=== PATIENT | male | born 1985 | race Caucasian/White ===

== ENCOUNTER 2024-11-05 13:21 | Emergency (ER) | payer OTHER, SELFPAY ==
[2024-11-05] VITALS (8 sets, daily range): BP systolic 117–126; BP diastolic 60–77; PULSE 64–88; BMI 25.0
[2024-11-05 13:42] LABS: % Basophils 0.8 % (0-2); % Immature Granulocytes 0.2 % (0-0.5); % Lymphocytes 30.5 % (20.5-51.1); % Monocytes 8.2 % (1.7-9.3); % Neutrophils 56.3 % (42.2-75.2); Absolute Eosinophils 0.2 10^3/uL (0-0.7); Absolute Lymphocytes 1.5 10^3/uL (1.2-3.4); Absolute Monocytes 0.4 10^3/uL (0.1-0.6); Absolute Neutrophils 2.8 10^3/uL (1.4-6.5); Hematocrit 39.1 % (39.0-52.0); Hemoglobin 13.7 g/dL (13.0-18.0); Mean Corpuscular Hgb 31.2 pg (27.0-31.0); Mean Corpuscular Volume 89.1 fL (80.0-94.0); Mean Platelet Volume 10.3 fL (7.4-10.4); Nucleated Red Blood Cells % 0 % (-); Platelet Count 174 10^3/uL (130-400); Red Blood Cell Count 4.39 10^6/uL (4.70-6.10)
[2024-11-05 14:03] LABS: ALT (SGPT) 16 U/L (0-50); AST (SGOT) 20 U/L (17-59); Alkaline Phosphatase 43 U/L (38-126); Blood Urea Nitrogen 13 mg/dl (9-20); Calcium 9.3 mg/dl (8.4-10.2); Carbon Dioxide 25 mmol/L (22-30); Chloride 111 mmol/L (98-107); Glucose 98 mg/dl (70-99); Sodium 143 mmol/L (135-145); Total Bilirubin 0.9 mg/dl (0.2-1.3); Total Protein 7.3 g/dl (6.3-8.2); eGFR > 60.00
--- NOTE | 2024-11-05 15:58 | ED.GENMED ---
History of Present Illness
General
Chief Complaint: Dizziness
Source: patient
Exam Limitations: none
Time Seen by Provider: 11/05/24 15:57
History of Present Illness
History of Present Illness:
39yoM with no significant past medical history presenting via EMS for evaluation of dizziness. Symptoms have been present for the past 3 days. He describes the dizziness as feeling lightheaded but also feeling like his brain is moving faster than
his body, 'like I have tunnel vision but my vision is all there.' Symptoms are constant but worsen with head movement and standing. He states it feels like he is 70% about to pass out but not quite there. He has some head pressure but denies any
headache. No loss of vision, ear pain, hearing loss, sinus pressure, chest pain. Of note, patient was sick with a stomach bug about 2 weeks ago. He was seen at urgent care yesterday and was advised to start using Flonase and follow up with his
PCP. He was seen by his PCP this afternoon and there was concern about peaked T waves so EMS was called. His only current medication is finasteride which he takes for hair loss.
Phy Exam
General Physical Exam
General Presentation: well appearing and no apparent distress
General Skin: warm and dry
General Habitus: normal
General Mental: alert
General Hydration: appears well hydrated
ENT Exam
ENT Exam: EOMI and normocephalic
Eye Exam
Eye Exam: PERRL, EOMI and conjunctiva normal
Cardiovascular Exam
Cardiovascular Exam: regular rate/rhythm and no murmur
Pulmonary Exam
Pulmonary Exam: lungs clear, no respiratory distress, no rales, no crackles, no rhonchi and no wheezing
Neurological Exam
Neurological Exam: alert and other (PERRL. EOMs intact without nystagmus. Normal finger to nose and heel to knight bilaterally. No gait ataxia noted.)
Melani Coma Scale
Eye Opening: Spontaneous
Verbal Response: Oriented
Motor Response: Obeys Commands
GCS Total Score: 15
Skin Exam
Skin Exam: normal color and warm/dry
Psychiatric Exam
Psychiatric Exam: normal mood/affect
Course
Orders/Labs/Results
Orders:
Orders
11/05/24 13:23
EKG [Electrocardiogram (*1)] Urgent
Reason for Study: Vertigo / Dizzy
EKG- Treatment ONCE
11/05/24 13:31
Complete Blood Count/With Diff Urgent
Comprehensive Metabolic Panel Urgent
11/05/24 16:13
Orthostatic VS- Treatment ONCE
0.9% Sodium Chloride 1000 ml [Nss] 1,000 ml IV BOLUS
Pt Eval And Treat Urgent
Treatment: vestibular eval
Activity Level: Out of Bed- Ad Shaista
11/05/24 16:43
CT Head W/o Iv Contrast Urgent
Comment:
Reason For Exam: dizziness
Abnormal Lab Results
11/05/24
13:31
RBC 4.39 L 10^6/uL
(4.70-6.10)
MCH 31.2 H pg
(27.0-31.0)
Chloride 111 H mmol/L
(98-107)
11/05/24 13:31
11/05/24 13:31
Vital Signs
Initial and Last Documented VS:
Initial Vital Signs
Temp Pulse Resp BP Pulse Ox
98.0 F 58 18 119/77 100
11/05/24 13:23 11/05/24 13:23 11/05/24 13:23 11/05/24 13:23 11/05/24 13:23
Last Documented Vital Signs
Temp Pulse Resp BP Pulse Ox
98.0 F 55 16 126/73 99
11/05/24 13:23 11/05/24 17:15 11/05/24 17:15 11/05/24 17:10 11/05/24 17:00
MDM/Problems Addressed
Differential Diagnosis Includes:
39yoM here with dizziness x 3 days. Described as lightheadedness but also described as feeling like his brain is moving faster than his body. Denies vertiginous symptoms. Sent here by PCP for concern for peaked T waves. VSS. He is well appearing in
no distress. Exam reassuring. No ataxia or nystagmus noted. Differential diagnosis includes but is not limited to: vertigo, orthostasis, dehydration, less likely CVA
Initial ED plan: Labs and EKG obtained in triage. EKG shows sinus bradycardia without ischemic changes or ectopy. Labs unremarkable including normal potassium, glucose, renal function. Will check orthostatic vitals, order vestibular evaluation, and
check CT head. IV fluid bolus.
*EKG
Interpreted by ED Provider?: Yes
EKG Intrepretation Date: 11/05/24
Heart Rate: 53
Rate: bradycardiac
Rhythm: sinus
[place]: normal axis
Interval: normal interval
QRS Pattern: normal QRS
Ischemia: no ischemia
*Critical Care Note
Total Time (30-74mins, 75-104mins- exclusive of procedures): Not Applicable
Update Note
Update Note:
CT head negative for acute findings. Patient evaluated by physical therapy and all vestibular testing was negative. Blood pressure did not drop with standing. Unclear etiology of symptoms. Advised follow-up with PCP. Patient also questioning
whether he should see a broadcast chief engineer and contact information was provided. Patient discharged in stable condition and ambulated with a steady gait out of emergency department.
ED Attending Note
-
Portions of this chart may have been created with voice recognition software.� Occasional wrong word or��sound alike� substitutions may have occurred due to the inherent limitations of voice recognition software.
Discharge Plan
Departure
Patient Disposition: Home (Routine Discharge)
Date of Disposition: 11/05/24
Time of Disposition: 17:23
Patient with high blood pressure during this ER visit?: No
Discharge Problem:
Nonspecific dizziness
Instructions: Dizziness
Referrals:
[facility] [Provider Group]
NONE,* [Family Provider, Internal Medicine]
Dat Chowdhury MD [Active, Cardiology]
Activity Restrictions/Additional Instructions:
Please follow-up with your family doctor. Return to the ER with any new or worsening symptoms.
Interventions
Interventions:
*Risk Screen - Suicide Last Done: 11/05/24 13:23
*General Assessment Last Done: 11/05/24 13:23
*Neglect/Abuse Screening Last Done: 11/05/24 16:21
*ED- Fall Risk Assessment Last Done: 11/05/24 13:23
*ED COVID-19 Vaccine History Last Done: 11/05/24 13:23
*Nursing Disposition Last Done: 11/05/24 17:34
ED- Neurological Assessment Last Done: 11/05/24 16:21
ED- Cardiac Assessment Last Done: 11/05/24 16:21
ED Swallowing Screen Last Done: 11/05/24 16:21
Discharge Date and Time
Discharge Date/Time: 11/05/24 17:42
Print Language: ALBANIAN
[2024-11-05] MEDS: NSS 1000 IV (16:17)
== END 2024-11-05 17:42 | disposition home or self-care (01) ==
LOC: EMR 13:21
PROVIDERS: Emergency Medicine; EMERGENCY PHYSICIAN Emergency Medicine
DX: R42 Dizziness and giddiness (principal); R00.1 Bradycardia, unspecified
CPT/HCPCS: 96360; 99284; 70450; 80053; 85025; 93005

== ENCOUNTER → 2024-11-21 08:53 | Outpatient (REF) | payer OTHER, SELFPAY | LOC: HWRCS 08:53 | PROVIDERS: ATTENDING PHYSICIAN Internal Medicine Cardiovascular Disease; FAMILY PHYSICIAN Student in an Organized Health Care Education/Training Program | DX: R00.1 Bradycardia, unspecified (principal) | CPT/HCPCS: 93306 ==